=== PATIENT | male | born 1935 | race Caucasian/White ===

== ENCOUNTER 2022-07-02 12:04 | Day surgery (SDC) | payer MEDICARE, OTHER ==
[~2022-07-02] VITALS: Ht 180.3 cm; Wt 85.1 kg
[2022-07-02 12:23] VITALS: BP 131/84; PULSE 88; TEMP 98.2
[2022-07-02] MEDS ORDERED: ELIQUIS 5MG PO (12:49)
[2022-07-02] MEDS ORDERED: CATAPRES 0.1MG0.1 MG PO (12:50)
[2022-07-02] MEDS ORDERED: ZOCOR 40MG40 MG PO (12:51)
[2022-07-02] MEDS ORDERED: LASIX 40MG TABL40 MG PO (12:51)
[2022-07-02] MEDS ORDERED: HCTZ 25MG TAB25 MG PO (12:52)
[2022-07-02] MEDS ORDERED: PRILOSEC 20MG20 MG PO (12:53)
[2022-07-02] MEDS ORDERED: FLOMAX 0.40.4 MG/CAP PO (12:54)
[2022-07-02] MEDS ORDERED: CIALIS5 MG PO (12:55)
[2022-07-02] MEDS ORDERED: FORTESTA10 MG/0.5 TP (12:56)
[2022-07-02] MEDS ORDERED: RT ADVAIR 228 DISKUS IH (12:57)
[2022-07-02] MEDS ORDERED: PROAIR HFA0.09 MG/AC IH (12:57)
[2022-07-02] MEDS ORDERED: NATURAL IRON65 MG PO (12:58)
[2022-07-02] MEDS ORDERED: VALTREX1 GM PO (13:00)
[2022-07-02] MEDS ORDERED: LOPRESSOR 225 MG/TAB PO (13:01)
[2022-07-02] MEDS ORDERED: FLONASE NASAL S16 GM NS (13:01)
[2022-07-02] MEDS ORDERED: FISH OIL 1000MG1 CAP PO (13:02)
[2022-07-02] MEDS ORDERED: LYSINE1000 MG PO (13:03)
[2022-07-02] MEDS ORDERED: STOOL SOFTENER100 M2 PO (13:03)
[2022-07-02] MEDS ORDERED: ZYRTEC 10MG10 MG PO (13:04)
[2022-07-02] MEDS ORDERED: VITAMINC1000TA PO (13:05)
[2022-07-02] MEDS ORDERED: VITAMIN D362.5 MC1 PO (13:06)
[2022-07-02] MEDS ORDERED: CETRA VITE SENI1 TAB PO (13:07)
[2022-07-02] MEDS ORDERED: CALCIUM-MAGNES1 EAC1 PO (13:08)
[2022-07-02 13:30] VITALS: BP 124/77; PULSE 68; TEMP 97
[2022-07-02 13:45] VITALS: BP 136/76; PULSE 62
[2022-07-02 14:00] VITALS: BP 132/69; PULSE 61
--- NOTE | 2022-07-02 16:16 | NUR ---
1330: PATIENT TO BAY 2 PER CART FROM ENDO SUITE. REPORT RECEIVED. VS STABLE. BREAHTING EVEN AND UNLABORED. PATIENT GIVEN MUFFIN AND JELLO. PATIENT DENIES ANY CONCERNS AT THIS TIME. RESTING IN RECLINER. CALL LIGHT IN REACH. AT BEDSIDE. 1345: PATIENT TOLERATING FOOD. VS REMAIN STABLE. NO COMPLAINTS AT THIS TIME. CALL LIGHT IN REACH. 1400: VS REMAIN STABLE. NO COMPLAINTS AT THIS TIME. CALL LIGHT IN REACH. 1410: DR. CARMICHAEL IN TO SPEAK WITH PATIENT AT THIS TIME. IV DC'D AT THIS TIME. REMAINS AT BEDSIDE. 1415: DISCHARGE EDUCATION COMPLETED. PATIENT STATED UNDERSTANDING OF INSTRUCTIONS. DISCHARGE PAPERWORK GIVEN TO PATIENT. PATIENT DENIES ANY ASSISTANCE DRESSING AT THIS TIME. 1430: PATIENT OFF UNIT PER WHEELCHAIR. PATIENT DISCHARGED TO HOME WITH PER PERSONAL VEHICLE.
== END 2022-07-02 14:30 | disposition home or self-care (01) ==
LOC: SDCO 12:04
DX: K22.70 Barrett's esophagus without dysplasia (principal); K20.90 Esophagitis, unspecified without bleeding; K29.70 Gastritis, unspecified, without bleeding; K44.9 Diaphragmatic hernia without obstruction or gangrene; K22.89 Other specified disease of esophagus; B37.81 Candidal esophagitis
CPT/HCPCS: J2704; J7120

== ENCOUNTER 2023-12-01 08:46 | Day surgery (SDC) | payer MEDICARE, OTHER ==
[~2023-12-01] VITALS: Ht 180.3 cm; Wt 82.1 kg
[~2023-12-01 08:46] MED LIST: CALCIUM-MAGNES1 EAC1 PO; CATAPRES 0.1MG0.1 MG PO; CETRA VITE SENI1 TAB PO; CIALIS5 MG PO; ELIQUIS 5MG PO; FISH OIL 1000MG1 CAP PO; FLOMAX 0.40.4 MG/CAP PO; FLONASE NASAL S16 GM NS; FORTESTA10 MG/0.5 TP; HCTZ 25MG TAB25 MG PO; LASIX 40MG TABL40 MG PO; LOPRESSOR 225 MG/TAB PO; LR 1,000 ML IV SCH; LYSINE1000 MG PO; NATURAL IRON65 MG PO; Ondansetron 4 MG/2 ML VIAL IV PRN; PRIL40 PO; PROAIR HFA0.09 MG/AC IH; RT ADVAIR 228 DISKUS IH; STOOL SOFTENER100 M2 PO; VALTREX1 GM PO; VITAMIN D362.5 MC1 PO; VITAMINC1000TA PO; ZOCOR 40MG40 MG PO; ZYRTEC 10MG10 MG PO
[2023-12-01] MEDS ORDERED: Lidocaine PF 2% (20 MG/ML) 5 ML VIAL ONE (09:33)
[2023-12-01 10:19] VITALS: BP 119/66; PULSE 72; TEMP 97.9
[2023-12-01 10:25] VITALS: BP 118/70; PULSE 69; TEMP 96
[2023-12-01 10:30] VITALS: BP 119/64; PULSE 61
[2023-12-01 10:45] VITALS: BP 129/70; PULSE 60
--- NOTE | 2023-12-01 13:06 | NUR ---
1025- PT BACK FROM ENDO PROCEDURE TO BAY 2 VIA CART. PT AMBULATED WITH ASSISTANCE TO RECLINER. MONITORS AND ALARMS SET. VSS. REPORT RECIEVED FROM ARUN PETERSON. PT REQUESTING FOOD AND DRINK. CALL LIGHT IN REACH. PT HAS NO OTHER NEEDS AT THIS TIME. 1030- PT TAKING FOOD AND DRINK WELL. NO COMPLICATIONS NOTED. 1050- DR. MONIQUE IN TO TALK TO PT ABOUT FINDINGS. 1120- DISCHARGE INFORMATION GIVEN. QUESTIONS ANSWERED. 1140- PT TRANSFERRED OUT OF HOSPITAL VIA WHEELCHAIR TO OWN PRIVATE VEHICLE DRIVEN BY .
[2023-12-24] MEDS ORDERED: WIXELA 250-501 EACH IH (09:35)
[2023-12-24] MEDS ORDERED: CEPHALEXIN500 M1 PO (13:16)
== END 2023-12-01 11:45 | disposition home or self-care (01) ==
LOC: SDCO 08:46
DX: K21.00 Gastro-esophageal reflux disease with esophagitis, without bleeding (principal); K44.9 Diaphragmatic hernia without obstruction or gangrene; K22.70 Barrett's esophagus without dysplasia; Z79.01 Long term (current) use of anticoagulants; Z95.0 Presence of cardiac pacemaker; Z87.891 Personal history of nicotine dependence
CPT/HCPCS: J2704